=== PATIENT | female | born 1935 | race African-American/Black ===

== ENCOUNTER 2017-03-05 10:56 | Emergency (ER) | payer MEDICARE, BC ==
[2017-03-05 11:23] LABS: Bilirubin Small (Negative); Blood, Urine Small (Negative); Clarity Slightly Cloudy (Clear); Glucose, Urine (Dipstick) Negative (Negative); Leukocyte Negative (Negative); Nitrite Negative (Negative); Protein, Urine (Dipstick) > or equal to 300 mg/dL (Neg-Trace)
[2017-03-05 11:25] LABS: Specific Gravity, Urine 1.024 (1.005-1.030)
[2017-03-05 11:31] LABS: Bacteria/HPF 1+ HPF (None Seen); RBC/HPF 0-3 HPF (0-3); Squamous Epithelial 0-3 HPF (0-3); WBC/HPF 0-3 HPF (0-3)
[2017-03-05 11:32] LABS: #Basophils 0.1 thou/uL (0.0-0.2); #Monocytes 0.4 thou/uL (0.11-0.59); #Neutrophils 7.1 thou/uL (1.40-6.50); %Basophils 0.9 % (0.0-1.0); %Eosinophils 0.2 % (0.0-10.0); %Lymphocytes 11.3 % (21.0-51.0); %Monocytes 4.9 % (0.0-10.0); %Neutrophils 82.6 % (42.0-75.0); Hemoglobin 14.9 g/dL (12.0-16.0); Mean Corpuscular Hemoglobin 30.2 pg (27.0-31.0); Mean Corpuscular Volume 94.3 fl (81.0-99.0); Mean Platelet Volume 6.8 fL (7.4-10.4); Platelet Count 234 thou/uL (130-400); RBC Distribution Width 13.3 % (11.5-14.5); Red Blood Cell (RBC) Count 4.94 mill/uL (4.20-5.40); White Blood Cell (WBC) Count 8.6 thou/uL (4.8-10.8)
[2017-03-05 11:32] LABS: Hyaline Casts/LPF 0-3 HYALINE CAST LPF (0-3 Hyaline); Other Microscopic Description 1+ MUCOUS
[2017-03-05 11:46] LABS: ALT (SGPT) 14 U/L (8-55); AST (SGOT) 25 U/L (5-34); Albumin 4.5 g/dL (3.4-4.8); Alkaline Phosphatase 124 U/L (40-150); Anion Gap 21 mmol/L (10-20); BUN (Urea Nitrogen) 11 mg/dL (9.8-20.1); Bilirubin, Total 0.7 mg/dL (0.2-1.2); Calc. Creatinine Clearance 0 mL/min (70-130); Calcium 9.9 mg/dL (7.8-10.44); Carbon Dioxide 21 mmol/L (23-31); Chloride 104 mmol/L (98-107); Estimated GFR-MDRD 72; Globulin 4.1 g/dL (2.4-3.5); Glucose 106 mg/dL (83-110); Glucose Accucheck Confirmation 106 mg/dL (83-110); Potassium 3.5 mmol/L (3.5-5.1); Protein, Total 8.6 g/dL (6.0-8.3); Sodium 142 mmol/L (136-145)
[2017-03-05] MEDS ORDERED: Sulfameth/Trimethoprim DS 800-160mg TAB ONE (12:22)
[2017-03-05] MEDS ORDERED: Lorazepam 0.5 MG TAB ONE (12:30)
--- NOTE | 2017-03-05 19:41 | CT ---
CT OF THE BRAIN WITHOUT CONTRAST 03/05/17 The ventricles are normal in size with no shift. No intracranial bleeding or extra-axial hematoma was seen. There is no sign of acute fracture, mass, or edema. The calvarium appears intact. The sphenoid sinus and mastoid air cells are clear. IMPRESSION: No acute intracranial finding. POS: HOME
--- NOTE | 2017-03-05 19:44 | RAD ---
PORTABLE CHEST 03/05/17 No prior films were available for comparison. This AP portable film at 11:26 shows mild cardiomegaly but no congestive change, pleural effusion, or focal pulmonary infiltrate. A cardiac pacer is in place. The trachea is midline. IMPRESSION: Mild cardiomegaly but no acute finding. POS: HOME
== END 2017-03-05 12:37 | disposition home or self-care (01) ==
LOC: BURERS 10:56
DX: F03.90 Unspecified dementia, unspecified severity, without behavioral disturbance, psychotic disturbance, mood disturbance, and anxiety (principal); N39.0 Urinary tract infection, site not specified; I10 Essential (primary) hypertension; G30.9 Alzheimer's disease, unspecified
CPT/HCPCS: 36416; 51701; 70450; 71010; 80053; 81003; 81015; 84443; 85025; 87086; 93005; 96360; 36415-59; A4353

== ENCOUNTER 2020-01-24 12:49 | Emergency (ER) | payer MEDICARE, BC ==
[2020-01-24 13:36] LABS: #Basophils 0.1 thou/uL (0.0-0.2); #Eosinphils 0.2 thou/uL (0.0-0.7); #Lymphocytes 1.2 thou/uL (1.20-3.40); #Monocytes 0.1 thou/uL (0.11-0.59); #Neutrophils 2.4 thou/uL (1.40-6.50); %Basophils 1.4 % (0.0-1.0); %Eosinophils 4.4 % (0.0-10.0); %Monocytes 2.8 % (0.0-10.0); %Neutrophils 60.3 % (42.0-75.0); Hemoglobin 15.9 g/dL (12.0-16.0); Mean Corpuscular HGB CONC 32.3 g/dL (32.0-36.0); Mean Corpuscular Hemoglobin 30.6 pg (27.0-31.0); Mean Corpuscular Volume 94.9 fL (78.0-98.0); Mean Platelet Volume 7.7 fL (7.4-10.4); Platelet Count 213 thou/uL (130-400); RBC Distribution Width 14.3 % (11.5-14.5); Red Blood Cell (RBC) Count 5.21 mill/uL (4.20-5.40); White Blood Cell (WBC) Count 3.9 thou/uL (4.8-10.8)
[2020-01-24 13:42] LABS: ALT (SGPT) 15 U/L (8-55); AST (SGOT) 20 U/L (5-34); Albumin 4.8 g/dL (3.4-4.8); Alkaline Phosphatase 109 U/L (40-110); Anion Gap 17 mmol/L (10-20); BUN (Urea Nitrogen) 12 mg/dL (9.8-20.1); Bilirubin, Total 0.9 mg/dL (0.2-1.2); Calc. Creatinine Clearance 0 mL/min (70-130); Calcium 10.1 mg/dL (7.8-10.44); Carbon Dioxide 28 mmol/L (23-31); Chloride 98 mmol/L (98-107); Estimated GFR-MDRD 56; Globulin 3.9 g/dL (2.4-3.5); Glucose 147 mg/dL (83-110); Lipase 80 U/L (8-78); Potassium 4.1 mmol/L (3.5-5.1); Protein, Total 8.7 g/dL (6.0-8.3); Sodium 139 mmol/L (136-145)
[2020-01-24] MEDS ORDERED: Aspirin Chewable 81 MG TAB ONE (13:44)
[2020-01-24] MEDS ORDERED: Ondansetron PF 4 MG/2 ML Vial ONE (13:56)
[2020-01-24 13:59] LABS: Bilirubin Negative (Negative); Blood, Urine Trace (Negative); Clarity Clear (Clear); Glucose, Urine (Dipstick) Negative (Negative); Ketone, Urine Negative (Negative); Leukocyte Negative (Negative); Nitrite Negative (Negative); Protein, Urine (Dipstick) 30 mg/dL (Neg-Trace)
[2020-01-24 14:00] LABS: Bacteria/HPF Rare-Few HPF (None Seen); RBC/HPF 0-3 HPF (0-3); Squamous Epithelial 0-3 HPF (0-3); WBC/HPF None Seen HPF (0-3)
--- NOTE | 2020-01-24 17:26 | CT ---
CT OF THE BRAIN WITHOUT CONTRAST: Date: 01/24/2020 Comparison is made with the 03/05/2017 study. Atrophy is present as before. No intracranial bleeding, mass, or sign of acute stroke was found. Ther e are probably some mild chronic ischemic changes in the deep white matter. Small basal ganglia calci fications are present bilaterally. The skull itself was unremarkable and the visible paranasal sinuse s are clear. IMPRESSION: No acute intracranial findings. Preliminary report called to Ashley in the ER at 1328 hours 01/24/2020. CODE CR. POS: HOME
--- NOTE | 2020-01-24 17:28 | RAD ---
PORTABLE CHEST: Date: 01/24/2020 An AP portable film at 1326 hours is compared with the 03/05/2017 study. Mild cardiomegaly and the size of the heart seems slightly larger than before. Nevertheless, I do not see any pleural effusion or congestive change. There is some thickening in the lateral part of the m inor fissure that had already begun back in 2017. The cardiac pacer remains in place. IMPRESSION: Slight increase in heart size over time, but no acute thoracic findings. POS: HOME
== END 2020-01-24 18:05 | disposition home or self-care (01) ==
LOC: BURERS 12:49
DX: R55 Syncope and collapse (principal); R11.0 Nausea; I10 Essential (primary) hypertension; Z79.899 Other long term (current) drug therapy
CPT/HCPCS: 51701; 70450; 71045; 80053; 81003; 81015; 83690; 83880; 84484; 85025; 93005; 96374; J2405

== ENCOUNTER 2020-03-08 06:50 | Emergency (ER) | payer MEDICARE, BC | END 2020-03-08 08:02 | disposition home or self-care (01) | LOC: BURERS 06:50 | DX: Z04.3 Encounter for examination and observation following other accident (principal); W19.XXXA Unspecified fall, initial encounter | CPT/HCPCS: 99283 ==

== ENCOUNTER 2021-02-05 11:22 | Emergency (ER) | payer BC, MEDICARE ==
[2021-02-05] MEDS ORDERED: Pantoprazole 40 MG VIAL ONE (12:46)
[2021-02-05] MEDS ORDERED: Ondansetron PF 4 MG/2 ML Vial ONE (12:46)
[2021-02-05 12:50] LABS: #Basophils 0.1 thou/uL (0.0-0.2); #Lymphocytes 0.4 thou/uL (1.20-3.40); %Basophils 0.6 % (0.0-1.0); %Eosinophils 0.1 % (0.0-10.0); %Lymphocytes 3.6 % (21.0-51.0); %Monocytes 7.6 % (0.0-10.0); %Neutrophils 88.1 % (42.0-75.0); Hemoglobin 12.1 g/dL (12.0-16.0); Mean Corpuscular HGB CONC 33.1 g/dL (32.0-36.0); Mean Corpuscular Hemoglobin 30.2 pg (27.0-31.0); Mean Corpuscular Volume 91.1 fL (78.0-98.0); Mean Platelet Volume 5.3 fL (7.4-10.4); Platelet Count 238 thou/uL (130-400); RBC Distribution Width 13.9 % (11.5-14.5); Red Blood Cell (RBC) Count 4.01 mill/uL (4.20-5.40); White Blood Cell (WBC) Count 12.5 thou/uL (4.8-10.8)
[2021-02-05 13:09] LABS: ALT (SGPT) 57 U/L (8-55); AST (SGOT) 47 U/L (5-34); Albumin 3.8 g/dL (3.4-4.8); Alkaline Phosphatase 99 U/L (40-110); Anion Gap 19 mmol/L (10-20); BUN (Urea Nitrogen) 83 mg/dL (9.8-20.1); Bilirubin, Total 0.7 mg/dL (0.2-1.2); CK (CPK) 41 U/L (29-168); Calc. Creatinine Clearance 0 mL/min (70-130); Carbon Dioxide 21 mmol/L (23-31); Chloride 104 mmol/L (98-107); Globulin 3.6 g/dL (2.4-3.5); Glucose 119 mg/dL (83-110); Potassium 4.6 mmol/L (3.5-5.1); Protein, Total 7.4 g/dL (5.8-8.1); Sodium 139 mmol/L (136-145)
[2021-02-05] MEDS ORDERED: cefTRIAXone\\ROCEPHIN 1 GM VIAL ONE ×2 (13:44→14:48)
[2021-02-05] MEDS ORDERED: Sodium Chloride 0.9% 100 ML ONE (13:44)
[2021-02-05 13:48] LABS: Bilirubin Negative (Negative); Blood, Urine Large (Negative); Clarity Slightly Cloudy (Clear); Glucose, Urine (Dipstick) Negative (Negative); Ketone, Urine Negative (Negative); Leukocyte Trace (Negative); Nitrite Negative (Negative); Protein, Urine (Dipstick) Negative (Neg-Trace); Specific Gravity, Urine 1.015 (1.005-1.030); Urobilinogen 0.2 mg/dL (Less than 2); pH, Urine 5.5 (5.0-9.0)
[2021-02-05 13:57] LABS: Bacteria/HPF 1+ HPF (None Seen); Squamous Epithelial 0-3 HPF (0-3)
[2021-02-05] MEDS ORDERED: Morphine 4 MG/ML VIAL ONE (15:14)
[2021-02-05] MEDS ORDERED: Labetalol HCl 100 MG/20 ML VIAL ONE (16:28)
== END 2021-02-05 17:06 | disposition short-term general hospital (02) ==
LOC: BURERS 11:22
DX: N17.9 Acute kidney failure, unspecified (principal); I10 Essential (primary) hypertension
CPT/HCPCS: 36415; 51701; 74176; 80053; 81003; 81015; 82274; 82550; 83605; 83880; 84484; 85025; 87077; 87086; 87186; 93005; 96365; 96375; C9113; J0696; J2270; J2405; J3490